=== PATIENT | male | born 1960 | race Caucasian/White ===

== ENCOUNTER 2019-11-26 13:42 | Outpatient (CLI) | payer MEDICARE | END 2019-11-26 23:59 | disposition home or self-care (01) | LOC: RAD 13:42 | PROVIDERS: ATTEND Radiology Diagnostic Radiology | DX: M48.061 Spinal stenosis, lumbar region without neurogenic claudication (principal); Q76.2 Congenital spondylolisthesis | CPT/HCPCS: 72131; 72148 ==